=== PATIENT | male | born 1990 | race Caucasian/White ===

== ENCOUNTER 2017-07-19 00:59 | Emergency (ER) | payer SELFPAY ==
[~2017-07-19] VITALS: Ht 182.9 cm; Wt 88.9 kg
[2017-07-19 01:27] VITALS: BP 117/71; PULSE 80; RESP 18; TEMP 98.6; O2SAT 98
[2017-07-19] MEDS ORDERED: IBUPROFEN 800 MG TAB PO ONE (01:45)
--- NOTE | 2017-07-19 02:05 | PD ---
HPI Chief Complaint: Skin Problem Time Seen by Provider: 01:44 Travel History International Travel<30 days: No Contact w/Intl Traveler<30days: No Traveled to known affect area: No History of Present Illness HPI 27-year-old male presents to the emergency department by private transportation for complaint of right lower leg pain associated with puncture wound from thorn sustained while at work on Wednesday afternoon. Patient states he pulled out the thorn from a plant in the area where he was working on Wednesday. Patient sustained a puncture wound. Patient's had no fever chills no ascending erythema no groin lymphadenopathy. Patient is not diabetic. Patient states since Wednesday he has noted some increased discomfort to the area with some myalgias and arthralgias. Patient denies other injury. Patient states tetanus shot is less than 5 years ago. Pain is described as moderate. Patient has taken a one-time dose of ibuprofen Wednesday evening. [facility] Past Medical History Narrative Medical Negative past medical history; tobacco use; nursing notes reviewed Tetanus Vaccination: < 5 Years ?: Not Social History Alcohol Use: No Tobacco Use: Yes Substance Use: No Allergies-Medications (Allergen,Severity, Reaction): Coded Allergies: Penicillins (Verified Allergy, Intermediate, Hives, 07/19/17) Narrative Medication Ibuprofen Review of Systems Except as stated in HPI: all other systems reviewed are Neg General / Constitutional: No: Fever, Chills HENT: No: Congestion Cardiovascular: No: Chest Pain or Discomfort Respiratory: No: Shortness of Breath Gastrointestinal: No: Abdominal Pain Genitourinary: No: Decreased Urinary Output Musculoskeletal: Positive: Myalgias, Arthralgias, Pain (Right lower leg) Skin: No Rash Neurologic: No: Weakness Psychiatric: Positive: Anxiety Hematologic/Lymphatic: No: Lymph Node Enlargement Physical Exam Narrative GENERAL: Well-developed well-nourished male no acute distress or respiratory distress SKIN: Warm and dry. HEAD: Normocephalic. EYES: No scleral icterus. No injection or drainage. NECK: Supple, trachea midline. No JVD or lymphadenopathy. CARDIOVASCULAR: Regular rate and rhythm without murmurs, gallops, or rubs. RESPIRATORY: Breath sounds equal bilaterally. No accessory muscle use. GASTROINTESTINAL: Abdomen soft, non-tender, nondistended. MUSCULOSKELETAL: No cyanosis, or edema. Attention right lower leg lateral aspect just proximal to the medial malleolus small puncture wound with minimal erythema edema no purulent drainage tender to palpation; distally extremities neurovascular tendon intact with 2+ dorsalis pedis pulse and brisk capillary refill proximally no ascending erythema or lymphadenopathy BACK: Nontender without obvious deformity. No CVA tenderness. Data Data Last Documented VS Vital Signs Date Time Temp Pulse Resp B/P (MAP) Pulse Ox O2 Delivery O2 Flow Rate FiO2 07/19/17 01:27 98.6 80 18 117/71 (86) 98 Orders Orders Tibia/Fibula (Ap/Lat) (07/19/17 ) Ibuprofen (Motrin) (07/19/17 01:45) Ed Discharge Order (07/19/17 03:06) Sulfamet-Trimeth Ds 800-160 Mg (Bactrim (07/19/17 03:15) MDM Medical Decision Making Medical Screen Exam Complete: Yes Emergency Medical Condition: Yes Medical Record Reviewed: Yes Interpretation(s) Last Impressions Tibia/Fibula X-Ray 07/19/17 0000 Signed Impressions: Service Date/Time: Wednesday, July 19, 2017 02:12 - CONCLUSION: Unremarkable examination of the right tibia. Praveen Oneal MD Vital Signs Date Time Temp Pulse Resp B/P (MAP) Pulse Ox O2 Delivery O2 Flow Rate FiO2 07/19/17 01:27 98.6 80 18 117/71 (86) 98 Differential Diagnosis Puncture wound, retained foreign body, abscess, cellulitis, neurovascular tendon injury Narrative Course Patient with puncture wound to lateral aspect of the right lower leg without fever chills without marked increased redness edema fluctuance or ascending erythema; imaging study ordered and explained to patient possible to miss thorn on image study for retained foreign body unable to palpate any obvious foreign body. Will determine if patient is candidate for incision and exploration of site post imaging study. Patient given weight-based IV for Diagnosis Primary Impression: Puncture wound of right lower leg Qualified Codes: S81.831A - Puncture wound without foreign body, right lower leg, initial encounter Referrals: Primary Care Physician 2 days Patient Instructions: General Instructions Additional Instructions: Elevate right lower leg Take ibuprofen 800 mg as often as every 8 hours as needed for pain associated inflammation or for fever 100.4F or greater Complete course of antibiotic as prescribed No work 1 day Return the emergency department for any concerns or change in condition Follow-up with your primary care provider Med/Other Pt SpecificInfo: Prescription(s) given Scripts Doxycycline Hyclate (Doxycycline Hyclate) 100 Mg Cap 100 MG PO BID for Infection for 5 Days, #10 CAP 0 Refills Prov: Eileen Hernandez MD 07/19/17 Sulfamethoxazole-Trimethoprim (Bactrim DS) 800-160 Mg Tab 1 TAB PO BID for Infection, #14 TAB 0 Refills Prov: Eileen Hernandez MD 07/19/17 Disposition: 01 DISCHARGE HOME Condition: Stable Eileen Hernandez MD Jul 19, 2017 02:05
--- NOTE | 2017-07-19 02:38 | RADRPT ---
EXAM DATE/TIME: 07/19/2017 02:12 [place] COMPARISON: No previous studies available for comparison. INDICATIONS : Foreign body in leg. MEDICAL HISTORY : None. SURGICAL HISTORY : None. ENCOUNTER: Initial ACUITY: 3 days PAIN SCORE: 5/10 LOCATION: Right Lower leg. FINDINGS: Two view examination of the right tibia demonstrates no evidence of fracture or dislocation. Bony mi neralization is normal. The soft tissue structures are intact. CONCLUSION: Unremarkable examination of the right tibia. Praveen Oneal MD on July 19, 2017 at 2:35 Board Certified Radiologist. This report was verified electronically.
[2017-07-19] MEDS ORDERED: DOXY100C PO (03:09)
[2017-07-19] MEDS ORDERED: BACT800T5 PO (03:09)
[2017-07-19] MEDS ORDERED: SULFAMETHOXAZOLE-TRIMETHOPRIM DS 800-160 MG TAB PO ONE (03:15)
== END 2017-07-19 03:38 | disposition home or self-care (01) ==
LOC: PHED 00:59
DX: S81.831A Puncture wound without foreign body, right lower leg, initial encounter (principal); W60.XXXA Contact with nonvenomous plant thorns and spines and sharp leaves, initial encounter; Y99.0 Civilian activity done for income or pay; Z72.0 Tobacco use
CPT/HCPCS: 73590; 99283

== ENCOUNTER 2017-08-22 17:57 | Emergency (ER) | payer SELFPAY ==
[2017-08-22] MEDS: ACETAMINOPHEN/HYDROcodone 325 MG/5 MG TAB PO (19:17)
== END 2017-08-22 20:37 | disposition home or self-care (01) ==
LOC: PHED 17:57
DX: R51 Headache (principal); Z72.0 Tobacco use; Z88.0 Allergy status to penicillin
CPT/HCPCS: 70450; 99283-25